=== PATIENT | male | born 1975 | race Caucasian/White ===

== ENCOUNTER → 2017-05-31 | Outpatient (REF) | payer BC, OTHER | LOC: M LAB REF 19:47 | DX: N39.0 Urinary tract infection, site not specified (principal) | CPT/HCPCS: 87086 ==

== ENCOUNTER → 2020-02-17 | Outpatient (CLI) | payer MEDICAID, SELFPAY | LOC: M OUTALCOH 11:15 | PROVIDERS: ATTEND Psychiatry & Neurology Addiction Medicine | DX: Z13.39 Encounter for screening examination for other mental health and behavioral disorders (principal); F15.20 Other stimulant dependence, uncomplicated; F12.20 Cannabis dependence, uncomplicated ==

== ENCOUNTER 2020-03-14 13:39 | Outpatient (RCR) | payer SELFPAY | END 2020-03-17 | LOC: M OUTALCOH 13:39 | PROVIDERS: ATTEND Psychiatry & Neurology Addiction Medicine | DX: F15.20 Other stimulant dependence, uncomplicated (principal); F12.20 Cannabis dependence, uncomplicated; F10.10 Alcohol abuse, uncomplicated; Z72.0 Tobacco use ==

== ENCOUNTER → 2020-04-16 | Outpatient (RCR) | payer SELFPAY | LOC: M OUTALCOH 03-21 13:54 | PROVIDERS: ATTEND Psychiatry & Neurology Addiction Medicine | DX: F15.20 Other stimulant dependence, uncomplicated (principal); F12.20 Cannabis dependence, uncomplicated; F10.10 Alcohol abuse, uncomplicated; Z72.0 Tobacco use ==

== ENCOUNTER 2020-05-16 08:00 | Outpatient (RCR) | payer OTHER, SELFPAY | END 2020-05-17 | LOC: M OUTALCOH 08:00 | PROVIDERS: ATTEND Psychiatry & Neurology Addiction Medicine | DX: F15.20 Other stimulant dependence, uncomplicated (principal); F12.20 Cannabis dependence, uncomplicated; F10.10 Alcohol abuse, uncomplicated; Z72.0 Tobacco use ==

== ENCOUNTER 2020-06-14 09:00 | Outpatient (RCR) | payer SELFPAY | END 2020-06-17 | LOC: M OUTALCOH 09:00 | PROVIDERS: ATTEND Psychiatry & Neurology Addiction Medicine | DX: F15.20 Other stimulant dependence, uncomplicated (principal); F12.20 Cannabis dependence, uncomplicated; F10.10 Alcohol abuse, uncomplicated; Z72.0 Tobacco use ==

== ENCOUNTER 2020-07-12 09:00 | Outpatient (RCR) | payer SELFPAY | END 2020-07-15 | LOC: M OUTALCOH 09:00 | PROVIDERS: ATTEND Psychiatry & Neurology Addiction Medicine | DX: F15.20 Other stimulant dependence, uncomplicated (principal); F12.20 Cannabis dependence, uncomplicated; F10.10 Alcohol abuse, uncomplicated; Z72.0 Tobacco use ==

== ENCOUNTER 2020-08-05 14:15 | Emergency (ER) | payer OTHER, SELFPAY ==
[~2020-08-05] VITALS: Ht 177.8 cm; Wt 93.5 kg
[2020-08-05] MEDS ORDERED: FLUO20CA22 (14:23)
[2020-08-05] MEDS ORDERED: IBUP200T45 PO (14:24)
[2020-08-05] MEDS ORDERED: ACET-683 PO (14:24)
--- NOTE | 2020-08-05 14:44 | REP ---
INDICATION: fall, injury, pain. COMPARISON: None. TECHNIQUE: There are three views. FINDINGS: There is no fracture or dislocation. The acromioclavicular and glenohumeral articulations are unremarkable. There are no calcifications or foreign bodies. IMPRESSION: Essentially negative right shoulder. <Electronically signed by Urbano Gomez > 08/05/20 [id number]
[2020-08-05] MEDS ORDERED: MORPHINE 10 MG/ML 1ML VIAL (J2270) IM ONE (15:20)
--- NOTE | 2020-08-05 15:50 | REP ---
INDICATION: right anterior rib pain; s/p fall. COMPARISON: Right shoulder series performed earlier today. TECHNIQUE: Right ribs four views, PA chest single-view. 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 No rib fractures are identified. PA chest: There is no pneumothorax, hemothorax or pulmonary contusion. The lung [place] are clear. The cardiac size is normal. 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 No rib fracture is identified. <Electronically signed by Urbano Gomez > 08/05/20 [id number]
[2020-08-05] MEDS ORDERED: PERC5TAB12 PO (16:20)
[2020-08-05 16:37] VITALS: BP 128/85
== END 2020-08-05 16:47 | disposition home or self-care (01) ==
LOC: M ED 14:15
DX: S20.219A Contusion of unspecified front wall of thorax, initial encounter (principal); S40.011A Contusion of right shoulder, initial encounter; V86.95XA Unspecified occupant of 3- or 4- wheeled all-terrain vehicle (ATV) injured in nontraffic accident, initial encounter; Y92.099 Unspecified place in other non-institutional residence as the place of occurrence of the external cause; Y93.9 Activity, unspecified; Y99.9 Unspecified external cause status; Q76.6 Other congenital malformations of ribs; F41.9 Anxiety disorder, unspecified
CPT/HCPCS: 71101; 73030; 96372; 99283; J2270

== ENCOUNTER → 2020-08-15 | Outpatient (RCR) | payer SELFPAY ==
[~2020-08-15] MED LIST: ACET-683 PO; FLUO20CA22; IBUP200T45 PO; PERC5TAB12 PO
== END ==
LOC: M OUTALCOH 07-19 14:27
PROVIDERS: ATTEND Psychiatry & Neurology Psychiatry
DX: F15.20 Other stimulant dependence, uncomplicated (principal); F12.20 Cannabis dependence, uncomplicated; F10.10 Alcohol abuse, uncomplicated; Z72.0 Tobacco use

== ENCOUNTER 2020-09-12 08:00 | Outpatient (RCR) | payer OTHER | END 2020-09-14 | LOC: M OUTALCOH 08:00 | PROVIDERS: ATTEND Psychiatry & Neurology Psychiatry | DX: F15.20 Other stimulant dependence, uncomplicated (principal); F12.20 Cannabis dependence, uncomplicated; F10.10 Alcohol abuse, uncomplicated; Z72.0 Tobacco use ==

== ENCOUNTER 2020-10-10 08:30 | Outpatient (RCR) | payer OTHER | END 2020-10-15 | LOC: M OUTALCOH 08:30 | PROVIDERS: ATTEND Psychiatry & Neurology Psychiatry | DX: F15.20 Other stimulant dependence, uncomplicated (principal); F12.20 Cannabis dependence, uncomplicated; F10.10 Alcohol abuse, uncomplicated; Z72.0 Tobacco use ==

== ENCOUNTER 2020-10-16 12:49 | Outpatient (RCR) | payer OTHER | END 2020-11-14 | LOC: M OUTALCOH 12:49 | PROVIDERS: ATTEND Psychiatry & Neurology Psychiatry | DX: F15.20 Other stimulant dependence, uncomplicated (principal); F12.20 Cannabis dependence, uncomplicated; F10.10 Alcohol abuse, uncomplicated; Z72.0 Tobacco use ==

== ENCOUNTER → 2021-05-03 | Outpatient (CLI) | payer OTHER ==
[2021-05-03 12:44] LABS: HEMATOCRIT 44.8 % (42.0-52.0); HEMOGLOBIN 14.8 g/dl (13.5-17.5); MEAN CORPUSCULAR HEMOGLOBIN 29.4 pg (27.0-33.0); MEAN CORPUSCULAR VOLUME 88.9 fl (80.0-96.0); PLATELET COUNT, AUTOMATED 247 10^3/uL (150-450); RED BLOOD COUNT 5.04 10^6/uL (4.30-6.10); WHITE BLOOD COUNT 5.4 10^3/uL (4.0-10.0)
[2021-05-03 13:59] LABS: ALBUMIN 4.4 GM/DL (3.2-5.2); ALT/SGPT 23 U/L (12-78); BILIRUBIN,TOTAL 0.5 MG/DL (0.2-1.0); BLOOD UREA NITROGEN 23 MG/DL (7-18); CALCIUM LEVEL 9.2 MG/DL (8.5-10.1); CARBON DIOXIDE LEVEL 29 MEQ/L (21-32); CHLORIDE LEVEL 107 MEQ/L (98-107); CHOLESTEROL LEVEL 200 MG/DL (<200); CHOLESTEROL RISK RATIO 2.702 (<5); FREE T4 1.02 NG/DL (0.76-1.46); GLOMERULAR FILTRATION RATE > 60.0 (>60); GLUCOSE, FASTING 95 MG/DL (70-100); HDL CHOLESTEROL 74 MG/DL (>40); LDL CHOLESTEROL 115 MG/DL (<100); NON-HDL-C 126 MG/DL; POTASSIUM SERUM 4.3 MEQ/L (3.5-5.1); SODIUM LEVEL 140 MEQ/L (136-145); TOTAL 25(OH) VITAMIN D 17.3 NG/ML (30.0-100.0); TOTAL PROTEIN 7.1 GM/DL (6.4-8.2); TRIGLYCERIDES LEVEL 56 MG/DL (<150)
== END ==
LOC: M WUC 08:51
PROVIDERS: ATTEND Physician Assistant
DX: Z13.220 Encounter for screening for lipoid disorders (principal); Z13.21 Encounter for screening for nutritional disorder; Z13.29 Encounter for screening for other suspected endocrine disorder

== ENCOUNTER → 2021-11-21 | Outpatient (REF) | payer OTHER | LOC: M LAB REF 21:20 | PROVIDERS: ATTEND Physician Assistant | DX: R50.9 Fever, unspecified (principal); T14.8XXA Other injury of unspecified body region, initial encounter ==

== ENCOUNTER → 2021-12-08 | Outpatient (REF) | payer OTHER | LOC: M LAB REF 17:18 | PROVIDERS: ATTEND Physician Assistant Medical | DX: T14.8XXA Other injury of unspecified body region, initial encounter (principal); W57.XXXA Bitten or stung by nonvenomous insect and other nonvenomous arthropods, initial encounter ==

== ENCOUNTER → 2022-09-23 | Outpatient (CLI) | payer OTHER | LOC: M PLAIMG 08:11 | PROVIDERS: ATTEND Physician Assistant | DX: M47.22 Other spondylosis with radiculopathy, cervical region (principal) ==

== ENCOUNTER → 2022-10-29 | Outpatient (CLI) | payer OTHER ==
[2022-10-29 12:38] LABS: PLATELET COUNT, AUTOMATED 229 10^3/uL (150-450)
[2022-10-29 12:48] LABS: INR 0.91; PROTHROMBIN TIME 12.5 SECONDS (12.5-14.5)
== END ==
LOC: M WUC 09:48
PROVIDERS: ATTEND Physical Medicine & Rehabilitation
DX: Z01.812 Encounter for preprocedural laboratory examination (principal)

== ENCOUNTER → 2023-07-08 | Outpatient (CLI) | payer OTHER | LOC: M WUC 11:18 | PROVIDERS: ATTEND Chiropractor | DX: M54.13 Radiculopathy, cervicothoracic region (principal); M99.01 Segmental and somatic dysfunction of cervical region; M51.34 Other intervertebral disc degeneration, thoracic region; M99.02 Segmental and somatic dysfunction of thoracic region; M62.49 Contracture of muscle, multiple sites; M47.812 Spondylosis without myelopathy or radiculopathy, cervical region; M41.9 Scoliosis, unspecified ==

== ENCOUNTER 2024-04-25 16:01 | Emergency (ER) | payer MEDICAID, OTHER, SELFPAY ==
[~2024-04-25] VITALS: Ht 177.8 cm; Wt 100.0 kg
[~2024-04-25 16:01] MED LIST changes: +FLUO-365; -FLUO20CA22
[2024-04-25 16:03] VITALS: BP 171/100; TEMP 97.9; O2SAT 99
[2024-04-25] MEDS: PERCOCET 5MG/325MG TAB PO ONE (20:04)
[2024-04-25] MEDS: ONDANSETRON 4MG ORAL DISINTEGRATING TAB PO ONE (20:04)
[2024-04-25] MEDS ORDERED: PERC5TAB12 PO (20:26)
[2024-04-25] MEDS ORDERED: MIRA3350 PO (20:26)
[2024-04-25] MEDS: OXYCODONE/APAP 5MG/325MG(HOME DOSE PACK) PO ONE (20:30)
== END 2024-04-25 20:44 | disposition home or self-care (01) ==
LOC: M ED 16:01
DX: S82.61XA Displaced fracture of lateral malleolus of right fibula, initial encounter for closed fracture (principal); S82.891A Other fracture of right lower leg, initial encounter for closed fracture; W00.0XXA Fall on same level due to ice and snow, initial encounter; Y92.009 Unspecified place in unspecified non-institutional (private) residence as the place of occurrence of the external cause; Y93.9 Activity, unspecified; Y99.9 Unspecified external cause status; F41.9 Anxiety disorder, unspecified; F32.A Depression, unspecified; Z79.899 Other long term (current) drug therapy

== ENCOUNTER → 2024-04-27 | Outpatient (REF) | payer MEDICAID ==
[~2024-04-27] MED LIST changes: +IBUP80TA PO; +MIRA3350 PO
[2024-04-27 10:43] LABS: BASO % 0.3 % (0.0-1.0); EOS # 0.1 10^3/uL (0.0-0.5); EOS % 0.6 % (0.0-3.0); HEMATOCRIT 42.7 % (42.0-52.0); HEMOGLOBIN 14.6 g/dl (13.5-17.5); LYMPH # 1.9 10^3/uL (1.5-5.0); LYMPH % 24.3 % (24.0-44.0); MEAN CORPUSCULAR HEMOGLOBIN 30.1 pg (27.0-33.0); MEAN CORPUSCULAR HGB CONC 34.2 g/dl (32.0-36.5); MONO # 0.7 10^3/uL (0.0-0.8); MONO % 8.9 % (2.0-8.0); NEUTROPHILS # 5.1 10^3/uL (1.5-8.5); NEUTROPHILS % 65.6 % (36.0-66.0); PLATELET COUNT, AUTOMATED 224 10^3/uL (150-450); RED BLOOD COUNT 4.85 10^6/uL (4.30-6.10); WHITE BLOOD COUNT 7.8 10^3/uL (4.0-10.0)
[2024-04-27 10:55] LABS: INR 0.93; PROTHROMBIN TIME 12.8 SECONDS (12.5-14.5)
[2024-04-27 11:11] LABS: ALBUMIN 4.2 G/DL (3.2-5.2); ALKALINE PHOSPHATASE 63 U/L (40-129); ALT/SGPT 16 U/L (7.0-40); AST/SGOT < 8 U/L (<34); BILIRUBIN,TOTAL 0.9 MG/DL (0.3-1.2); BLOOD UREA NITROGEN 18 MG/DL (9-23); CALCIUM LEVEL 10.3 MG/DL (8.5-10.1); CARBON DIOXIDE LEVEL 27 MMOL/L (20-31); CHLORIDE LEVEL 106 MMOL/L (98-107); CREATININE FOR GFR 0.91 MG/DL (0.70-1.30); GLOMERULAR FILTRATION RATE > 60.0 (>60); GLUCOSE, FASTING 93 MG/DL (60-100); POTASSIUM SERUM 4.9 MMOL/L (3.5-5.1); SODIUM LEVEL 140 MMOL/L (136-145); TOTAL PROTEIN 7.1 G/DL (5.7-8.2)
[2024-04-27 11:13] LABS: TOTAL 25(OH) VITAMIN D 24.3 NG/ML (20.0-100.0)
== END ==
LOC: M PLALAB 09:41
PROVIDERS: ATTEND Orthopaedic Surgery
DX: S82.61XA Displaced fracture of lateral malleolus of right fibula, initial encounter for closed fracture (principal); Y92.9 Unspecified place or not applicable; Y93.9 Activity, unspecified; Y99.9 Unspecified external cause status; X58.XXXA Exposure to other specified factors, initial encounter

== ENCOUNTER 2024-05-03 11:12 | Day surgery (SDC) | payer MEDICAID ==
[~2024-05-03] VITALS: Ht 177.8 cm; Wt 99.7 kg
[2024-05-03] MEDS ORDERED: NS (Normal Saline) 0.9% 1,000 ML IV SCH (12:10)
[2024-05-03] MEDS: ceFAZolin 2 GM/D5W 50 ML IV BAG As Ordered ONE (13:30)
[2024-05-03] MEDS ORDERED: ROCURONIUM BROMIDE 50MG/5ML VIAL As Ordered ONE (13:39)
[2024-05-03] MEDS ORDERED: MIDAZOLAM INJ 2MG/2ML VIAL As Ordered ONE (13:39)
[2024-05-03] MEDS ORDERED: KETOROLAC 60MG 2ML VIAL As Ordered ONE (13:39)
[2024-05-03] MEDS ORDERED: ACETAMINOPHEN 1000MG/100ML IV BAG As Ordered ONE (13:39)
[2024-05-03] MEDS ORDERED: dexmedeTOMIDine (4MCG/ML)200MCG/50ML BTL (PRECEDEX) As Ordered ONE (13:39)
[2024-05-03] MEDS ORDERED: fentaNYL 250 MCG/5 ML INJECTION As Ordered ONE (13:39)
[2024-05-03] MEDS ORDERED: propofoL 200 MG/20 ML VIAL As Ordered ONE (13:39)
[2024-05-03] MEDS ORDERED: SUGAMMADEX SODIUM 500 MG/5 ML VIAL (BRIDION) As Ordered ONE (13:39)
[2024-05-03] MEDS ORDERED: LIDOCAINE 2% 100MG/5ML SDV (FOR ANES.) As Ordered ONE (13:39)
[2024-05-03] MEDS ORDERED: METOCLOPRAMIDE INJ 10MG/2ML VIAL As Ordered ONE (13:39)
[2024-05-03] MEDS ORDERED: ONDANSETRON 4MG 2ML VIAL As Ordered ONE (13:39)
[2024-05-03] MEDS ORDERED: ONDANSETRON 4MG 2ML VIAL IV PRN (14:45)
[2024-05-03] MEDS ORDERED: PERC5TAB12 PO (14:54)
[2024-05-03] MEDS ORDERED: METOCLOPRAMIDE INJ 10MG/2ML VIAL IV PRN (15:00)
[2024-05-03] MEDS: oxyCODONE 5MG TAB PO PRN (15:02)
[2024-05-03] MEDS: fentaNYL 100 MCG/2 ML INJECTION IV PRN (15:06)
[2024-05-03] MEDS: HYDROMORPHONE HCL 0.5 MG/ 0.5 ML SYRINGE IV PRN (15:36)
[2024-05-03 16:09] VITALS: BP 132/72; TEMP 97.4; O2SAT 100
== END 2024-05-03 16:20 | disposition home or self-care (01) ==
LOC: M SDC 11:12
PROVIDERS: ATTEND Orthopaedic Surgery
DX: S93.431A Sprain of tibiofibular ligament of right ankle, initial encounter (principal); S82.841A Displaced bimalleolar fracture of right lower leg, initial encounter for closed fracture; W00.2XXA Other fall from one level to another due to ice and snow, initial encounter; Y93.01 Activity, walking, marching and hiking; Y92.89 Other specified places as the place of occurrence of the external cause
CPT/HCPCS: 27792; 27829; 76000; C1713; J0131; J0665; J0690; J1100; J1171; J1885; J2250; J2405; J2765; J3010

== ENCOUNTER → 2024-05-16 | Outpatient (CLI) | payer MEDICAID | LOC: M SOG 07:53 | PROVIDERS: ATTEND Orthopaedic Surgery | DX: Z47.89 Encounter for other orthopedic aftercare (principal); S82.841D Displaced bimalleolar fracture of right lower leg, subsequent encounter for closed fracture with routine healing ==

== ENCOUNTER → 2024-05-30 | Outpatient (CLI) | payer MEDICAID | LOC: M SOG 07:54 | PROVIDERS: ATTEND Orthopaedic Surgery | DX: S82.841D Displaced bimalleolar fracture of right lower leg, subsequent encounter for closed fracture with routine healing (principal) ==

== ENCOUNTER → 2024-06-30 | Outpatient (CLI) | payer OTHER, MEDICAID | LOC: M SOG 07:50 | PROVIDERS: ATTEND Orthopaedic Surgery | DX: S82.841D Displaced bimalleolar fracture of right lower leg, subsequent encounter for closed fracture with routine healing (principal) ==